=== PATIENT | female | born 1995 | race Caucasian/White ===

== ENCOUNTER 2017-07-04 16:11 | Emergency (ER) | payer SELFPAY ==
[2017-07-04] MEDS ORDERED: 0.9 % SODIUM CHLORIDE 1,000 ML BAG IV ONE ×2 (16:40→17:37)
[2017-07-04] MEDS ORDERED: ONDANSETRON HCL IV 4 MG/2 ML VIAL IV ONE (16:40)
[2017-07-04] MEDS ORDERED: HYDROCODONE/APAP 5/325MG TABLET PO ONE (16:52)
--- NOTE | 2017-07-04 16:57 | Emergency Department Record ---
History of Present Illness - General Chief Complaint: Passed out Stated Complaint: PASSOUT,DIZZINESS,NAUSEA Time Seen by Provider: 07/04/17 16:31 Source: Patient Mode of Arrival: Ambulatory Limitations: No limitations Travel/Exposure to [facility] [place] Within 21 Days of Symptoms: No - History of Present Illness Initial Comments: The patient is here due to not feeling well today. She was on the toilet earlier today and developed the acute onset of nausea, vomiting, and diarrhea. She then became very weak and lightheaded and possibly passed out for a few seconds. Since then she has had loose stools and intermittent lower abdominal pain but presently the abdominal pain has resolved. The patient has been weak since the incident. She denies any CP, SOB, ROME, dysuria, or any vaginal issues. Additionally the patient lives in a rodent infested home and her family has been ill there also. Due to that the patient is concerned she may have Hantavirus and would like to be tested for it. The patient has had no cough, SOB , CAROL, or sputum production. MD Complaint: Almost passed out Onset/Timin -: Hour(s) Prodromal Symptoms: Lightheaded, Nausea/vomiting Description of Event: Other Duration of Episode: 2 -: Minutes(s) History: Other Context: Other Treatments Prior to Arrival: None - Related Data Previous Rx's Medication Instructions Recorded Ondansetron [Zofran Odt] 4 mg SL .Q4-6H PRN #6 tab.rapdis 07/04/17 Allergies Allergy/AdvReac Type Severity Reaction Status Date / Time milk Allergy ANAPHYLAXIS Unverified 05/26/17 12:38 Travel Screening - Travel/Exposure Within Last 30 Days Have you traveled within the last 30 days?: No Review of Systems Constitutional: Denies: Chills, Fever Eyes: Denies: Eye discharge ENT: Denies: Congestion Respiratory: Denies: Cough, Dyspnea, Hemoptysis Past Medical History - SOCIAL HISTORY Smoking Status: Current every day smoker Alcohol Use: None Drug Use: None - RESPIRATORY Hx Respiratory Disorders: No - CARDIOVASCULAR Hx Cardio Disorders: No - NEURO Hx Neuro Disorders: No - GI Hx GI Disorders: Yes Hx Reflux: Yes Hx Irritable Bowel: Yes - Hx Genitourinary Disorders: No - ENDOCRINE Hx Endocrine Disorders: No - MUSCULOSKELETAL Hx Musculoskeletal Disorders: Yes Comment:: Nalpatala syndrome - PSYCH Hx Psych Problems: Yes Hx Anxiety: Yes Hx Depression: Yes - HEMATOLOGY/ONCOLOGY Hx Hematology/Oncology Disorders: No Family Medical History Any Significant Family History?: Yes Hx Diabetes: Grandparents Hx HTN: Father Physical Exam - General General Appearance: Alert, Oriented x3, Cooperative, No acute distress - Head Head exam: Atraumatic, Normocephalic, Normal inspection - Eye Eye exam: Normal appearance, PERRL - ENT Throat exam: Normal inspection. negative: Tonsillar erythema, Tonsillar exudate - Neck Neck exam: Normal inspection, Full ROM. negative: Meningismus (The neck is very supple.), Tenderness - Respiratory Respiratory exam: Normal lung sounds bilaterally. negative: Respiratory distress - Cardiovascular Cardiovascular Exam: Regular rate, Normal rhythm, Normal heart sounds - GI/Abdominal GI/Abdominal exam: Soft, Normal bowel sounds. negative: Mass, Rebound, Rigid, Tenderness (The abdomen is very nontender in all 4 quads.) - Extremities Extremities exam: Normal inspection, Full ROM, Normal capillary refill. negative: Tenderness - Back Back exam: Reports: Normal inspection, Full ROM. Denies: Muscle spasm, Rash noted, Tenderness - Neurological Neurological exam: Alert, Normal gait. negative: Abnormal gait, Motor sensory deficit - Psychiatric Psychiatric exam: negative: Anxious - Skin Skin exam: negative: Rash Course Vital Signs 07/04/17 16:19 Temperature 98.2 F Pulse Rate 92 H Respiratory 20 Rate Blood Pressure 116/72 Pulse Ox 100 - Reevaluation(s) Reevaluation #1: The patient is doing very well at this time. She is resting comfortably with no complaints or issues. 07/04/17 17:31 Reevaluation #2: The patient is doing very well at this time. She denies any pain or discomfort and on exam her abdomen is very soft and nontender in all 4 quads. She is feeling much better with the IVF and nausea medicine. 07/04/17 17:37 Reevaluation #3: 2nd EKG: NSR at 74, Nonspecific T changes anterior leads. No ischemic changes. 07/04/17 18:04 Reevaluation #4: The patient is doing very well at this time. She denies any pain, SOB, CP, ROME, or an dizziness or lightheadedness with standing. The patient has had no further vomiting, or diarrhea in the ED and just feels fatigued. I explained to her that the test results are all WNL's and she will be discharged with results to see her PCP later this week and return for any worsening symptoms. 07/04/17 18:25 Medical Decision Making - Data Complexity MDM Data: Labs Ordered and/or Reviewed, EKG Ordered and/or Reviewed - Lab Data Result diagrams: 07/04/17 16:55 07/04/17 16:55 - EKG Data -: EKG Interpreted by Me (Sinus tach at 120, nonspecific ST changes III, AVF, V2 -6.) Disposition Disposition: Discharge Clinical Impression: Gastroenteritis Disposition: Home, Self-Care Condition: (1) Good Instructions: Gastroenteritis (ED) Additional Instructions: Please drink plenty of fluids and use the Zofran if needed. Please see your PCP for recheck later this week. Return to the ER for any increased nausea, vomiting , diarrhea, fever, or any bleeding with the loose stools. Prescriptions: Ondansetron [Zofran Odt] 4 mg SL .Q4-6H PRN #6 tab.rapdis PRN Reason: Nausea Forms: Patient Portal Access Time of Disposition: 18:29 Quality - Quality Measures Quality Measures: N/A - Blood Pressure Screening View Details: Yes Does Patient Have Any of the Following: No Blood Pressure Classification: Normal BP Reading Systolic Measurement: 116 Diastolic Measurement: 72 Screening for High Blood Pressure: < Normal BP, F/U Not Required > [G8783]
[2017-07-04 17:12] LABS: BASO % 0.2 % (0-6); EOS % 0.3 % (0-6); GRAN % 72.3 % (47-80); HEMATOCRIT 42.6 % (35.0-47.0); HEMOGLOBIN 14.6 gm/dl (11.6-16.0); LYMPH % 21.8 % (16-45); MEAN CELL VOLUME 92.2 fl (81-97); MEAN CORPUSCULAR HEMOGLOBIN 31.6 pg (27-33); MEAN CORPUSCULAR HGB CONC 34.3 g/dl (32-36); MEAN PLATELET VOLUME 9.5 fl (7.4-10.4); MONO % 5.4 % (0-9); PLATELET COUNT 274 K/uL (130-400); RED BLOOD COUNT 4.62 M/uL (3.80-5.40); RED CELL DISTRIBUTION WIDTH 12.7 % (11.5-14.5); WHITE BLOOD COUNT W/O DIFF 6.2 K/uL (4.2-12.2)
[2017-07-04 17:17] LABS: URINE APPEARANCE CLEAR; URINE BILIRUBIN NEGATIVE (NEGATIVE); URINE BLOOD NEGATIVE (NEGATIVE); URINE COLOR YELLOW; URINE GLUCOSE (UA) NEGATIVE (NEGATIVE); URINE KETONE NEGATIVE (NEGATIVE); URINE LEUKOCYTE ESTERASE NEGATIVE (NEGATIVE); URINE NITRITE NEGATIVE (NEGATIVE); URINE PROTEIN NEGATIVE (NEGATIVE); URINE UROBILINOGEN 0.2 E.U./dL (0.20 - 1.00)
[2017-07-04 17:23] LABS: HCG,QUALITATIVE URINE NEGATIVE (NEGATIVE)
[2017-07-04 17:24] LABS: ALB/GLOB RATIO 1.6 (1.1-1.8); ALBUMIN 4.4 g/dL (4.0-5.0); ALKALINE PHOSPHATASE 49 U/L (35-104); ALT/SGPT 6 U/L (<33); AST/SGOT 13 U/L (10.0-35.0); BLOOD UREA NITROGEN 7 mg/dL (6-20); CREATININE 0.5 mg/dL (0.5-0.9); EST GLOMERULAR FILTRATION RATE > 60 mL/min; GLUCOSE,RANDOM 81 mg/dL (74-109); LIPASE 31 U/L (13-60); TOTAL PROTEIN 7.1 g/dL (6.6-8.7)
[2017-07-04] MEDS ORDERED: POTASSIUM CHLORIDE 20 MEQ TABLET PO ONE (17:35)
[2017-07-04] MEDS ORDERED: SODIUM CHLORIDE 0.9% 500 ML IV ONE (17:38)
[2017-07-04 18:02] LABS: CREATINE PHOSPHOKINASE 60 U/L (26-192)
[2017-07-04 18:06] LABS: CKMB < 1.0 ng/mL (<3.77)
== END 2017-07-04 18:46 | disposition home or self-care (01) ==
LOC: ER 16:11
DX: K52.9 Noninfective gastroenteritis and colitis, unspecified (principal); R11.2 Nausea with vomiting, unspecified; R42 Dizziness and giddiness
CPT/HCPCS: 80053; 81003; 81025; 82550; 82553; 83690; 84484; 85025; 93005; 93010; 96361; 96374; 99284; J2405; J7030